=== PATIENT | female | born 1965 ===

== ENCOUNTER 2019-01-01 11:40 | Emergency (ER) | payer OTHER ==
[~2019-01-01] VITALS: Ht 172.7 cm; Wt 118.4 kg
[2019-01-01] MEDS ORDERED: SYNTHROID175 MCG (12:31)
[2019-01-01] MEDS ORDERED: COZAAR25 MG (12:31)
[2019-01-01] MEDS ORDERED: ORPHENADRINE C100 MG PO (14:34)
[2019-01-01] MEDS ORDERED: KETO10TA2 PO (14:34)
[2019-01-01] MEDS ORDERED: VISTARIL50 MG PO (14:34)
== END 2019-01-01 14:52 | disposition home or self-care (01) ==
LOC: ER 11:40
DX: M62.838 Other muscle spasm (principal); I10 Essential (primary) hypertension; F06.4 Anxiety disorder due to known physiological condition